=== PATIENT | male | born 1930 | race Caucasian/White ===

== ENCOUNTER 2016-12-04 19:35 | Inpatient (IN) | payer MEDICARE ==
[~2016-12-04] VITALS: Ht 182.9 cm; Wt 83.9 kg
--- NOTE | 2016-12-04 20:00 | NUR ---
GPS MANAGER PRICING NOTES: ADMITTED THIS 86 YEAR OLD MALE ON VOLUNTARY STATUS. REAL (NURSING ENVIRONMENTAL HEALTH MANAGER) EXPLAIN THE VOLUNTARY FORM AND SIGNED BY THE PATIENT, WITNESSED BY TWO EMT. PER HOLD PATIENT CURRENTLY RESIDES AT HOME AND USED A RAZOR BLADE FOR INTENDED LACERATION. PATIENT WAS A&OX3 WITH EPISODES OF CONFUSION AND REPORTS SUICIDAL IDEATION, THOUGH STATES NO DRUG OR ALCOHOL USE PRIOR TO SELF HARM. UPON FACE TO FACE PATIENT DENIED FEELING DEPRESSED AND SUICIDAL. PATIENT IS DISORGANIZED, DISORIENTED, AMBULATORY WITH ASSISTANCE, FALL RISK. VITAL SIGNS CHECKED AND RECORDED. SKIN/ BODY CHECK DONE. NOTED RIGHT WRIST LACERATION, RIGHT FINGER CUT. WOUND CONSULT TRIGGERED. PATIENT ADMITTED UNDER THE CARE OF DR. FRAZIER FOR PSYCH AND DR. AINSLEY MCBRIDE FOR MEDICAL. BED IN LOW AND LOCKED POSITION, SIDERAILS UPX2, CALL PERALES WITHIN REACH, WILL CONTINUE TO MONITOR FOR SAFETY AND BEHAVIOR [id number].
[2016-12-04] MEDS ORDERED: ACETAMINOPHEN 325 MG TABLET PO PRN (20:30)
[2016-12-04] MEDS ORDERED: MAGNESIUM HYDROXIDE 30 ML UDC PO PRN (20:30)
[2016-12-04] MEDS ORDERED: MAG HYDROX/AL HYDROX/SIMETH 30 ML UDC PO PRN (20:30)
[2016-12-04] MEDS ORDERED: LORAZEPAM 0.5 MG TABLET PO PRN (20:30)
[2016-12-04] MEDS ORDERED: AMLO5TAB2 PO (22:55)
[2016-12-04] MEDS ORDERED: DOCU-25 PO (22:55)
[2016-12-04] MEDS ORDERED: APIX5TAB PO (22:55)
[2016-12-04] MEDS ORDERED: FAMO20TA8 PO (22:55)
[2016-12-04] MEDS ORDERED: SERT25TA PO (22:55)
[2016-12-05 04:55] VITALS: BP 148/95
[2016-12-05 08:00] VITALS: BP 138/88
--- NOTE | 2016-12-05 08:33 | NUR ---
ADMINISTERED ATIVAN 0.5 MG PO PRN FOR ANXIETY, PARANOIA, V/S TAKEN BP-138/88, P-92, ALSO ADMINISTERED TYLENOL 650 MG PO PRN FOR PAIN 5/10, RIGHT WRIST, CONTINUED MONITORING.
[2016-12-05] MEDS: SERTRALINE HCL 25 MG TABLET PO SCH (14:30)
--- NOTE | 2016-12-05 14:57 | NUR ---
GPS/RN PER DR MILLARD VERBAL ORDERS: DO NOT ADMINISTER ZOLOFT PO UNTILL CT SCAN RESULTED AND PT SEEN BY NEUROLOGY.
[2016-12-05] MEDS: ASPIRIN 81 MG TAB.CHEW PO SCH (15:00)
--- NOTE | 2016-12-05 15:09 | NUR ---
GPS/RN CT RESULTS READ TO DR MILLARD. NO NEW ORDERS GIVEN. DR MILLARD WILL CONTACT NEUROLOGY DR FAJARDO TO FOLLOW UP.
[2016-12-05 16:00] VITALS: BP 149/70
[2016-12-05] MEDS ORDERED: Z GUARD REMEDY 2 OZ OINT TP PRN (17:00)
[2016-12-05 18:36] LABS: BASOPHILS % (AUTO) 0.1 % (0.0-2.0); EOSINOPHILS # (AUTO) 0.1 /CMM (0.0-0.7); HEMATOCRIT 45 % (39-51); HEMOGLOBIN 14.8 g/dL (13.5-17.5); LYMPHOCYTES # (AUTO) 1.9 /CMM (0.8-4.8); MEAN CORPUSCULAR HEMOGLOBIN 30 PG (26.0-33.0); MEAN CORPUSCULAR HGB CONC 33 g/dl (31.0-36.0); MEAN CORPUSCULAR VOLUME 93 fL (80-96); MONOCYTES # (AUTO) 0.6 /CMM (0.1-1.30); MONOCYTES % (AUTO) 8.2 % (2.0-12.0); NEUTROPHILS # (AUTO) 4.7 /CMM (1.8-8.9); NEUTROPHILS % (AUTO) 64.7 % (43.0-81.0); PLATELET COUNT (AUTO) 131 /CMM (150-450); RDW COEFFICIENT OF VARIATION 14.9 (11.5-15.0); RED BLOOD CELL COUNT(AUTO) 4.88 MIL/uL (4.5-6.0); WHITE BLOOD COUNT (AUTO) 7.3 K/uL (4.3-11.0)
[2016-12-05 18:50] LABS: ALBUMIN 3.5 g/dL (3.4-5.0); BILIRUBIN,TOTAL 1.6 mg/dL (0.2-1.0); POTASSIUM 3.6 mmol/L (3.5-5.1); TOTAL PROTEIN, SERUM 7.2 g/dL (6.4-8.2)
[2016-12-05 20:24] VITALS: BP 151/74
[2016-12-05 21:00] VITALS: BP 140/86
[2016-12-05] MEDS: TEMAZEPAM 7.5 MG CAPSULE PO PRN (22:57)
--- NOTE | 2016-12-06 06:04 | NUR ---
PT. REFUSED TAKE THE PICTURE OF RIGHT FINGER, ENCOURAGED X3 STILL REFUSED
[2016-12-06 07:55] LABS: CALCIUM, SERUM 9.1 mg/dL (8.5-10.1); CREATININE 0.9 mg/dL (0.6-1.3); MAGNESIUM 1.8 mg/dL (1.8-2.4); PHOSPHORUS 3.7 mg/dL (2.5-4.9); POTASSIUM 3.5 mmol/L (3.5-5.1)
[2016-12-06 08:11] LABS: BASOPHILS % (AUTO) 0.4 % (0.0-2.0); EOSINOPHILS # (AUTO) 0.1 /CMM (0.0-0.7); EOSINOPHILS % (AUTO) 1.1 % (0.0-6.0); HEMATOCRIT 43 % (39-51); LYMPHOCYTES % (AUTO) 25.4 % (20.0-44.0); MEAN CORPUSCULAR HEMOGLOBIN 31 PG (26.0-33.0); MEAN CORPUSCULAR HGB CONC 33 g/dl (31.0-36.0); MEAN CORPUSCULAR VOLUME 94 fL (80-96); MONOCYTES # (AUTO) 0.7 /CMM (0.1-1.30); MONOCYTES % (AUTO) 9.2 % (2.0-12.0); NEUTROPHILS # (AUTO) 5.2 /CMM (1.8-8.9); NEUTROPHILS % (AUTO) 63.9 % (43.0-81.0); PLATELET COUNT (AUTO) 118 /CMM (150-450); RDW COEFFICIENT OF VARIATION 14.6 (11.5-15.0); RED BLOOD CELL COUNT(AUTO) 4.57 MIL/uL (4.5-6.0); WHITE BLOOD COUNT (AUTO) 8.1 K/uL (4.3-11.0)
[2016-12-06 09:06] VITALS: BP 151/75
[2016-12-06] MEDS: ASPIRIN 81 MG TAB.CHEW PO SCH (09:13)
[2016-12-06] MEDS: SERTRALINE HCL 25 MG TABLET PO SCH (09:14)
--- NOTE | 2016-12-06 11:19 | NUR ---
WOUND CARE CONSULT: PATIENT SEEN AND SKIN ASSESSMENT DONE. PATIENT ALERT, INDEPENDENT WITH BED MOBILITY, INCONTINENT, CALEB 22. SEE TODAY'S SKIN ASSESSMENT IN PCS ALONG WITH RECOMMENDATIONS DISCUSSED WITH NURSING STAFF INCLUDING MOISTURE PROTECTION WITH Z GUARD ORDERED. IN AGREEMENT WITH PLAN OF CARE. Addendum: 12/06/16 at 1120 by REGGIE CHAVEZ WNDNU Amended: Links added.
--- NOTE | 2016-12-06 11:20 | NUR ---
TEXTED DR. ESTRADA FOR MRI APPROVAL.
[2016-12-06] MEDS: NEOMY SULF/BACITRAC ZN/POLY 15 GM TUBE TP SCH (11:30)
--- NOTE | 2016-12-06 12:11 | NUR ---
WOUND CARE CONSULT: DR. FRANSISCO MAYES IN TO SEE PATIENT, ORDERED LOCAL WOUND TREATMENT, APPLY TRIPLE ANTIBIOTIC COVER WITH XEROFORM INSTEAD OF OIL EMULSION TO RIGHT WRIST LACERATION. CHANGED ORDER DISCUSSED WITH NURSING STAFF AND CARRIED OUT. IN AGREEMENT WITH PLAN OF CARE.
[2016-12-06 16:00] VITALS: BP 124/80
--- NOTE | 2016-12-06 17:56 | NUR ---
Initial discharge plan: Pt. lives at home with ,[address] [facility] [address] and wants to return. SW was unable to contact the daughter, Michelle, but will try again later. NIVIA will follow up with MD and will help form safe and proper discharge.
--- NOTE | 2016-12-06 18:30 | NUR ---
PATIENT VOMIT X1 TIME AFTER EATING DINNER, V/S TAKEN BP-158/97, P-77, O2-93 ROOM AIR, T-98.6, PATIENT REFUSED MRI, DIRECTOR OF INSTRUCTIONAL TECHNOLOGY GHULAM NOTIFIED. CONTINUED MONITORING. ENDORSED ONCOMING NURSE FOR CONTINUATION OF CARE.
[2016-12-06] MEDS ORDERED: ONDANSETRON 4 MG TAB.RAPDIS PO PRN (19:00)
[2016-12-06 21:43] VITALS: BP 142/100
[2016-12-07 08:00] VITALS: BP 100/66
[2016-12-07] MEDS: SERTRALINE HCL 25 MG TABLET PO SCH (08:39)
[2016-12-07] MEDS: FAMOTIDINE (20 MG) 20 MG TABLET PO SCH ×2 (08:39→16:10)
[2016-12-07] MEDS: ASPIRIN 81 MG TAB.CHEW PO SCH (08:39)
[2016-12-07] MEDS: DOCUSATE SODIUM 100 MG CAPSULE PO SCH ×2 (08:39→16:10)
[2016-12-07] MEDS: NEOMY SULF/BACITRAC ZN/POLY 15 GM TUBE TP SCH (08:44)
--- NOTE | 2016-12-07 09:02 | NUR ---
GPS RN NOTE: PT IN BED RESTING NO S/S DISTRESS NOTED VS WNL NO VOMITING AT THIS TIME, PT COMPLIANT WITH MEDICATIONS . PT LINA CONTACTED TO BRING HOME MEDICATIONS TAMIR PT WIVE PT DONT HAVE THIS MEDICATION, PT WAS REFUSING MEDICATIONS . WILL NOTIFIED MD AND PHARMACY AND CONTINUE MONITORING FOR SAFETY AND BEHAVIOR Q 15 MIN
[2016-12-07] MEDS: APIXABAN 5 MG TABLET PO SCH ×2 (11:35→16:10)
[2016-12-07 16:00] VITALS: BP 146/84
[2016-12-07 18:05] LABS: APPEARANCE,URINE CLEAR (CLEAR); BILIRUBIN,URINE 1+ (NEGATIVE); BLOOD, URINE NEGATIVE Ery/uL (NEGATIVE); COLOR,URINE ORANGE (YELLOW); KETONES,URINE TRACE (NEGATIVE); LEUKOCYTE ESTERASE ,URINE NEGATIVE (NEGATIVE); NITRITE, URINE NEGATIVE (NEGATIVE); PROTEIN,URINE TRACE mg/dl (NEGATIVE); UGLUCOSE NEGATIVE (NEGATIVE)
[2016-12-07 18:09] LABS: ADD URINE CULTURE NO; BACTERIA,URINE None seen /HPF (None Seen); RBC,URINE 0-2 /HPF (0-2); WBC,URINE 0-2 /HPF (0-3)
[2016-12-07 18:10] LABS: SQUAMOUS EPITHELIAL CELL,UR Rare /HPF (None Seen)
[2016-12-07] MEDS: TEMAZEPAM 7.5 MG CAPSULE PO PRN (22:28)
[2016-12-08 08:00] VITALS: BP 101/56
[2016-12-08] MEDS: ASPIRIN 81 MG TAB.CHEW PO SCH (08:06)
[2016-12-08] MEDS: FAMOTIDINE (20 MG) 20 MG TABLET PO SCH ×2 (08:06→17:43)
[2016-12-08] MEDS: SERTRALINE HCL 25 MG TABLET PO SCH (08:07)
[2016-12-08] MEDS: NEOMY SULF/BACITRAC ZN/POLY 15 GM TUBE TP SCH (08:07)
[2016-12-08] MEDS: DOCUSATE SODIUM 100 MG CAPSULE PO SCH ×2 (08:07→17:43)
[2016-12-08] MEDS: APIXABAN 5 MG TABLET PO SCH ×2 (08:10→17:45)
--- NOTE | 2016-12-08 09:13 | NUR ---
SW spoke to the resident's daughter Malka Parks ([phone]) who stated that she is upset that no one has contacted her regarding the patient's medical/psychiatric condition. She stated that she was going to be coming by today to see him and talk to the staff. In terms of discharge plan, dtr stated that she did not know and that it would depend on the type of care patient requires. SW will follow up with MD regarding most appropriate discharge plan.
[2016-12-08 17:39] VITALS: BP 150/72
--- NOTE | 2016-12-08 19:30 | NUR ---
GPS RN NOTE, RECEIVED PATIENT AWAKE AND IN BED, NO S/S OR COMPLAINTS OF PAIN AT THIS TIME. PATIENT IS DISPLAYING NO S/S OF APPARENT DISTRESS AT THIS TIME. PATIENT BREATHING IS UNLABORED WITH EQUAL RISE AND FALL OF THE CHEST. PATIENT IS ALERT AND ORIENTED X 2 ON ROOM AIR WITH A SPO2 OF 95%. PATIENT IS MED COMPLIANT, DISORGANIZED, PARANOID, DISORIENTED, CONFUSED, AND NEEDS REORIENTATION. PATIENT DENIES SUICIDE IDEATIONS AND HOMICIDAL IDEATIONS AT THIS TIME. PATIENT ASSISTED WITH TURNING AND REPOSITIONING Q2HR AND PRN FOR COMFORT AND CIRCULATION. PATIENT HAS NO NEEDS AT THIS TIME. PATIENT EDUCATED ON THE USE OF THE CALL PERALES. PATIENT BED SIDE RAILS ARE UP X2 FOR SAFETY, BED IS LOCKED AND LOW WILL CONTINUE TO MONITOR AND MAINTAIN SAFETY.
[2016-12-08 20:11] VITALS: BP 126/73
[2016-12-09 07:26] LABS: BASOPHILS % (AUTO) 0.3 % (0.0-2.0); EOSINOPHILS # (AUTO) 0.1 /CMM (0.0-0.7); EOSINOPHILS % (AUTO) 0.8 % (0.0-6.0); HEMATOCRIT 44 % (39-51); HEMOGLOBIN 14.5 g/dL (13.5-17.5); LYMPHOCYTES # (AUTO) 1.7 /CMM (0.8-4.8); LYMPHOCYTES % (AUTO) 17.6 % (20.0-44.0); MEAN CORPUSCULAR HEMOGLOBIN 31 PG (26.0-33.0); MEAN CORPUSCULAR HGB CONC 33 g/dl (31.0-36.0); MEAN CORPUSCULAR VOLUME 94 fL (80-96); MONOCYTES # (AUTO) 0.6 /CMM (0.1-1.30); MONOCYTES % (AUTO) 6.6 % (2.0-12.0); NEUTROPHILS # (AUTO) 7.3 /CMM (1.8-8.9); NEUTROPHILS % (AUTO) 74.7 % (43.0-81.0); PLATELET COUNT (AUTO) 127 /CMM (150-450); RDW COEFFICIENT OF VARIATION 14.1 (11.5-15.0); RED BLOOD CELL COUNT(AUTO) 4.69 MIL/uL (4.5-6.0); WHITE BLOOD COUNT (AUTO) 9.8 K/uL (4.3-11.0)
[2016-12-09 07:45] LABS: ALBUMIN 3.1 g/dL (3.4-5.0); BILIRUBIN,DIRECT 0.3 mg/dL (0.0-0.2); BILIRUBIN,TOTAL 1.6 mg/dL (0.2-1.0); CALCIUM, SERUM 8.7 mg/dL (8.5-10.1); CREATININE 0.9 mg/dL (0.6-1.3); POTASSIUM 3.3 mmol/L (3.5-5.1); TOTAL PROTEIN, SERUM 6.7 g/dL (6.4-8.2)
[2016-12-09 08:00] VITALS: BP 145/85
[2016-12-09] MEDS: DOCUSATE SODIUM 100 MG CAPSULE PO SCH ×2 (08:18→16:46)
[2016-12-09] MEDS: SERTRALINE HCL 25 MG TABLET PO SCH (08:18)
[2016-12-09] MEDS: ASPIRIN 81 MG TAB.CHEW PO SCH (08:18)
[2016-12-09] MEDS: FAMOTIDINE (20 MG) 20 MG TABLET PO SCH ×2 (08:18→16:45)
[2016-12-09] MEDS: NEOMY SULF/BACITRAC ZN/POLY 15 GM TUBE TP SCH (08:20)
[2016-12-09] MEDS: APIXABAN 5 MG TABLET PO SCH ×2 (08:20→16:47)
--- NOTE | 2016-12-09 14:19 | NUR ---
NIVIA sent a referral to [facility] [address], [place] [address] . will follow up Addendum: 12/09/16 at 1453 by JI GONZÁLES Per Esthela ptGina is not able to be accepted due to current suicide attempt
[2016-12-09] MEDS ORDERED: POTASSIUM CHLORIDE 20 MEQ TAB.PRT.SR PO ONE (14:30)
--- NOTE | 2016-12-09 14:53 | NUR ---
NIVIA spoke with pt's daughter Malka Parks ([phone]) and , Dashawn [phone], who wants to be contacted from now on and not her daughter. NIVIA was told that is working with Luke from [facility] [phone] who is working with finding the patient a placement. Dashawn did not want SW involved in the process and was refusing to provide the number for Luke at first, but after explaining that NIVIA needs to be involved to provide information for the facility to accept the patient, she provided the number. NIVIA left a voicemail for Luke from [facility] and will follow up
[2016-12-09 16:00] VITALS: BP 150/90
[2016-12-09] MEDS: BOOST PLUS FOOD-VANILLA 237 ML BOX PO SCH (16:47)
[2016-12-09 20:00] VITALS: BP 114/53
[2016-12-10 08:00] VITALS: BP 130/65
[2016-12-10] MEDS: NEOMY SULF/BACITRAC ZN/POLY 15 GM TUBE TP SCH (08:46)
[2016-12-10] MEDS: FAMOTIDINE (20 MG) 20 MG TABLET PO SCH ×2 (08:46→18:40)
[2016-12-10] MEDS: ASPIRIN 81 MG TAB.CHEW PO SCH (08:46)
[2016-12-10] MEDS: BOOST PLUS FOOD-VANILLA 237 ML BOX PO SCH ×2 (08:46→18:40)
[2016-12-10] MEDS: APIXABAN 5 MG TABLET PO SCH ×2 (08:46→18:41)
[2016-12-10] MEDS: DOCUSATE SODIUM 100 MG CAPSULE PO SCH ×2 (08:46→18:40)
[2016-12-10] MEDS: SERTRALINE HCL 25 MG TABLET PO SCH (08:46)
[2016-12-10 16:00] VITALS: BP 156/90
--- NOTE | 2016-12-10 19:30 | NUR ---
GPS RN NOTE, RECEIVED PATIENT AWAKE AND IN BED, NO S/S OR COMPLAINTS OF PAIN AT THIS TIME. PATIENT IS DISPLAYING NO S/S OF APPARENT DISTRESS AT THIS TIME. PATIENT BREATHING IS UNLABORED WITH EQUAL RISE AND FALL OF THE CHEST. PATIENT IS ALERT AND ORIENTED X 2 ON ROOM AIR WITH A SPO2 OF 97%. PATIENT IS MED COMPLIANT, DISORGANIZED, PARANOID, DISORIENTED, CONFUSED, AND NEEDS REORIENTATION. PATIENT DENIES SUICIDE IDEATIONS AND HOMICIDAL IDEATIONS AT THIS TIME. PATIENT ASSISTED WITH TURNING AND REPOSITIONING Q2HR AND PRN FOR COMFORT AND CIRCULATION. PATIENT HAS NO NEEDS AT THIS TIME. PATIENT EDUCATED ON THE USE OF THE CALL PERALES. PATIENT BED SIDE RAILS ARE UP X2 FOR SAFETY, BED IS LOCKED AND LOW WILL CONTINUE TO MONITOR AND MAINTAIN SAFETY.
[2016-12-10 20:25] VITALS: BP 157/75
[2016-12-11 08:00] VITALS: BP 155/99
[2016-12-11] MEDS: BOOST PLUS FOOD-VANILLA 237 ML BOX PO SCH ×2 (08:29→16:32)
[2016-12-11] MEDS: SERTRALINE HCL 25 MG TABLET PO SCH (08:30)
[2016-12-11] MEDS: FAMOTIDINE (20 MG) 20 MG TABLET PO SCH ×2 (08:30→16:32)
[2016-12-11] MEDS: ASPIRIN 81 MG TAB.CHEW PO SCH (08:30)
[2016-12-11] MEDS: DOCUSATE SODIUM 100 MG CAPSULE PO SCH ×2 (08:30→16:32)
[2016-12-11] MEDS: APIXABAN 5 MG TABLET PO SCH ×2 (08:31→16:32)
[2016-12-11] MEDS: NEOMY SULF/BACITRAC ZN/POLY 15 GM TUBE TP SCH (08:32)
--- NOTE | 2016-12-11 09:14 | NUR ---
GPS RN: MORNING MEDS ADMINISTERED BY JASON ENRIQUEZ RN
[2016-12-11 16:00] VITALS: BP 150/90
[2016-12-11 20:00] VITALS: BP 108/66
[2016-12-12 08:00] VITALS: BP 136/71
[2016-12-12] MEDS: DOCUSATE SODIUM 100 MG CAPSULE PO SCH ×2 (08:20→16:39)
[2016-12-12] MEDS: APIXABAN 5 MG TABLET PO SCH ×2 (08:20→16:40)
[2016-12-12] MEDS: ASPIRIN 81 MG TAB.CHEW PO SCH (08:20)
[2016-12-12] MEDS: FAMOTIDINE (20 MG) 20 MG TABLET PO SCH ×2 (08:20→16:39)
[2016-12-12] MEDS: NEOMY SULF/BACITRAC ZN/POLY 15 GM TUBE TP SCH (08:20)
[2016-12-12] MEDS: BOOST PLUS FOOD-VANILLA 237 ML BOX PO SCH ×2 (08:20→16:39)
[2016-12-12] MEDS: SERTRALINE HCL 25 MG TABLET PO SCH (08:20)
[2016-12-12 09:22] VITALS: BP 136/71
--- NOTE | 2016-12-12 10:29 | NUR ---
RECEIVED PT. ASLEEP IN BED, BREATHING IS EVEN AND UNLABORED. NO SIGN OF DISTRESS AND NO AGITATION NOTED. WILL CONTINUE TO MONITOR FOR SAFETY.
[2016-12-12 16:00] VITALS: BP 156/89
[2016-12-12 20:19] VITALS: BP 123/62
[2016-12-13] MEDS: BOOST PLUS FOOD-VANILLA 237 ML BOX PO SCH ×2 (07:55→17:28)
[2016-12-13 08:00] VITALS: BP 137/76
[2016-12-13] MEDS: SERTRALINE HCL 25 MG TABLET PO SCH (08:00)
[2016-12-13] MEDS: FAMOTIDINE (20 MG) 20 MG TABLET PO SCH ×2 (08:00→17:28)
[2016-12-13] MEDS: DOCUSATE SODIUM 100 MG CAPSULE PO SCH ×2 (08:00→17:28)
[2016-12-13] MEDS: ASPIRIN 81 MG TAB.CHEW PO SCH (08:00)
[2016-12-13] MEDS: NEOMY SULF/BACITRAC ZN/POLY 15 GM TUBE TP SCH (08:01)
[2016-12-13] MEDS: APIXABAN 5 MG TABLET PO SCH ×2 (08:01→17:29)
--- NOTE | 2016-12-13 12:56 | NUR ---
NIVIA spoke with Kecia August from [facility] [phone] (aka [facility] reported by pt's ), who confirmed that Luke [phone] is the nurse working with the family, stated that family said SW is working on finding an accepting facility for pt. NIVIA notified Kecia August that refused to allow SW to work on anything and was insisting that Luke will be helping them and already knows which facility will be accepting the patient. Kecia August stated that she will talk to Luke and have her call the SW to collaborate. NIVIA will follow up with Luke or Kecia August if no contact is attempted soon.
--- NOTE | 2016-12-13 14:21 | NUR ---
NIVIA faxed a referral to [facility] [address], [place] . will follow up
--- NOTE | 2016-12-13 15:18 | NUR ---
SW sent a referral to [facility] [address], [place] [address] , [id number] [place] [address]; . [facility] Address: [address], [place] [address] , and [facility] Address: [address] [place] [address], [place] [address] . Will follow up
[2016-12-13 16:00] VITALS: BP 142/73
--- NOTE | 2016-12-13 16:03 | NUR ---
[id number]: NOTIFIED ELECTRICAL WIRING LINEMAN AINSLEY MCBRIDE ABOUT LAB RESULTS ON 12/09/16: POTASSIUM= 3.3, BUN= 26, TOTAL BILIRUBIN= 1.6, DIRECT BILIRUBIN= 0.3, INDIRECT BILIRUBIN= 1.3, ALBUMIN= 3.1. NO NEW ORDERS GIVEN AT THIS TIME.
--- NOTE | 2016-12-13 19:30 | NUR ---
GPS RN NOTE, RECEIVED PATIENT AWAKE AND IN BED, NO S/S OR COMPLAINTS OF PAIN AT THIS TIME. PATIENT IS DISPLAYING NO S/S OF APPARENT DISTRESS AT THIS TIME. PATIENT BREATHING IS UNLABORED WITH EQUAL RISE AND FALL OF THE CHEST. PATIENT IS ALERT AND ORIENTED X 2 ON ROOM AIR WITH A SPO2 OF 94%. PATIENT IS MED COMPLIANT, DISORGANIZED, PARANOID, DISORIENTED, CONFUSED, AND NEEDS REORIENTATION. PATIENT DENIES SUICIDE IDEATIONS AND HOMICIDAL IDEATIONS AT THIS TIME. PATIENT ASSISTED WITH TURNING AND REPOSITIONING Q2HR AND PRN FOR COMFORT AND CIRCULATION. PATIENT HAS NO NEEDS AT THIS TIME. PATIENT EDUCATED ON THE USE OF THE CALL PERALES. PATIENT BED SIDE RAILS ARE UP X2 FOR SAFETY, BED IS LOCKED AND LOW WILL CONTINUE TO MONITOR AND MAINTAIN SAFETY.
[2016-12-13 20:00] VITALS: BP 125/55
[2016-12-14 08:00] VITALS: BP 138/75
[2016-12-14] MEDS: SERTRALINE HCL 25 MG TABLET PO SCH (08:21)
[2016-12-14] MEDS: FAMOTIDINE (20 MG) 20 MG TABLET PO SCH (08:21)
[2016-12-14] MEDS: ASPIRIN 81 MG TAB.CHEW PO SCH (08:22)
[2016-12-14] MEDS: APIXABAN 5 MG TABLET PO SCH (08:23)
[2016-12-14] MEDS: NEOMY SULF/BACITRAC ZN/POLY 15 GM TUBE TP SCH (08:23)
[2016-12-14] MEDS: DOCUSATE SODIUM 100 MG CAPSULE PO SCH (08:25)
[2016-12-14] MEDS: BOOST PLUS FOOD-VANILLA 237 ML BOX PO SCH (08:27)
--- NOTE | 2016-12-14 15:30 | NUR ---
[id number]: PT IS 86 YEARS OLD FEMALE DISCHARGE TO [facility] [place] [address] [place]. [address] IN STABLE CONDITION. COMPLIANT WITH MEDICATIONS, COOPERATIVE WITH TREATMENT PLANS. PT DENIES SI/HO AND INSTRUCTED TO GO TO THE CLOSEST ER IF DEVELOPING SI/HI. BEHAVIOR IMPROVED, PSYCHIATRIC TX PLANS MET, MEDICAL TX PLANS DEFERRED FOR CONTINUAL MONITORING. EDUCATED PT ABOUT AFTER CARE PLAN AND COPY PROVIDED. RETURN PERSONAL BELONGINGS TO PT. MEDICATIONS RECONCILED WITH DR. FRAZIER AND DR. FOLEY. REPORT GIVEN TO MARIAELENA AT [facility] FOR CONTINUITY OF CARE. PT UNABLE TO SIGN DISCHARGE PAPERWORK. SKIN ASSESSMENT DONE. PT LEFT THE UNIT VIA AMBULANCE.
--- NOTE | 2016-12-14 15:33 | NUR ---
Discharge note: discharged to [facility] [address] [place] [address]; ,via [facility]. , Dashawn [phone] notified and agreed with the discharge plan. Pt. was calm and cooperative upon discharge.Discharge instructions have been provided to the accepting facility and discharge paperwork has been singed.
== END 2016-12-14 15:30 | DRG 885 ==
LOC: GPS 19:35
PROVIDERS: ADMIT Psychiatry & Neurology Psychosomatic Medicine; ATTEND Nurse Practitioner Acute Care
DX: F32.3 Major depressive disorder, single episode, severe with psychotic features (principal); F02.81 Dementia in other diseases classified elsewhere, unspecified severity, with behavioral disturbance; D68.59 Other primary thrombophilia; E87.0 Hyperosmolality and hypernatremia; N39.0 Urinary tract infection, site not specified; R17 Unspecified jaundice; F29 Unspecified psychosis not due to a substance or known physiological condition; K21.9 Gastro-esophageal reflux disease without esophagitis; I25.119 Atherosclerotic heart disease of native coronary artery with unspecified angina pectoris; I48.91 Unspecified atrial fibrillation; Z95.5 Presence of coronary angioplasty implant and graft; Z90.79 Acquired absence of other genital organ(s); Z95.1 Presence of aortocoronary bypass graft; I10 Essential (primary) hypertension; F01.50 Vascular dementia, unspecified severity, without behavioral disturbance, psychotic disturbance, mood disturbance, and anxiety; G30.9 Alzheimer's disease, unspecified; E78.5 Hyperlipidemia, unspecified; S66.821D Laceration of other specified muscles, fascia and tendons at wrist and hand level, right hand, subsequent encounter; G47.30 Sleep apnea, unspecified; X78.9XXD Intentional self-harm by unspecified sharp object, subsequent encounter; Y92.009 Unspecified place in unspecified non-institutional (private) residence as the place of occurrence of the external cause; E80.4 Gilbert syndrome; Z86.73 Personal history of transient ischemic attack (TIA), and cerebral infarction without residual deficits; Z87.440 Personal history of urinary (tract) infections; I25.10 Atherosclerotic heart disease of native coronary artery without angina pectoris; F39 Unspecified mood [affective] disorder; E86.1 Hypovolemia; E87.6 Hypokalemia; M19.90 Unspecified osteoarthritis, unspecified site; N28.1 Cyst of kidney, acquired
CPT/HCPCS: 36415; 70450-TC; 76700-TC; 80048-TC; 80053-TC; 80061-TC; 80076-TC; 81000-TC; 83735-TC; 84100-TC; 84443-TC; 85025-TC; 87081-TC; 97001-TC; 97116-TC; 97530-TC; A6402